=== PATIENT | female | born 1960 | race Caucasian/White ===

== ENCOUNTER → 2016-10-02 | Outpatient (CLI) | payer BC ==
[~2016-10-02] MED LIST: NIAC750T11 PO; VARE1TAB PO
[2016-10-02 08:04] LABS: Basophils # (auto) 0 uL; Basophils % (auto) 0.5 % (0.0-2.0); Eosinophils # (auto) 0.1 uL; Eosinophils % (auto) 0.8 % (0.0-7.0); Hematocrit 52.5 % (36.0-46.0); Hemoglobin 17.5 g/dL (12.2-16.2); Lymphocytes # (auto) 2.9 uL; Lymphocytes % (auto) 31.4 % (10.0-50.0); Mean Corpuscular Hemoglobin 31.5 pg (28.0-32.0); Mean Corpuscular Hgb Conc. 33.2 g/dL (32.0-36.0); Mean Corpuscular Volume 94.8 fL (80.0-100.0); Mean Platelet Volume 9.2 fL (7.4-10.4); Monocytes # (auto) 0.9 uL; Monocytes % (auto) 9.9 % (0.0-12.0); Neutrophils # (auto) 5.2 uL; Neutrophils % (auto) 57.4 % (37.0-80.0); Platelet Count (auto) 296 10^3/uL (140-450); Red Cell Distribution Width 14.3 % (11.6-16.0); White Blood Cell 9.1 10^3/uL (4.4-10.8)
[2016-10-02 08:15] LABS: Urine Bilirubin Negative (Negative); Urine Blood Negative /uL (Negative); Urine Color Yellow (Yellow); Urine Glucose Normal (Normal); Urine Ketone Negative (Negative); Urine Mucus FEW (None Seen); Urine Nitrite Negative (Negative); Urine RBC 2 /hpf (0 - 4); Urine Squamous Epithelial Cell MOD /hpf (<5); Urine Urobilinogen Normal (Negative); Urine pH 5.5 (5.0-8.0)
[2016-10-02 08:31] LABS: Albumin 3.5 g/dL (3.4-5.0); BUN/Creatinine Ratio 22.9; Bilirubin, Total 1.1 mg/dL (0.2-1.0); Calcium 9.5 mg/dL (8.5-10.1); Potassium 4.3 mmol/L (3.5-5.1); Total Protein 6.8 g/dL (6.4-8.2)
== END | disposition home or self-care (01) ==
LOC: LAB 06:33
PROVIDERS: ATTEND Internal Medicine
DX: I10 Essential (primary) hypertension (principal); E78.00 Pure hypercholesterolemia, unspecified; Z00.00 Encounter for general adult medical examination without abnormal findings
CPT/HCPCS: 36415; 80053; 80061; 81001; 84443; 85025

== ENCOUNTER → 2016-10-27 | Outpatient (CLI) | payer BC | LOC: XYW 07:53 | PROVIDERS: ATTEND Internal Medicine | DX: I27.2 Other secondary pulmonary hypertension (principal); I37.1 Nonrheumatic pulmonary valve insufficiency | CPT/HCPCS: 93306 ==

== ENCOUNTER → 2016-11-05 | Outpatient (CLI) | payer BC | END | disposition home or self-care (01) | LOC: RT 08:28 | PROVIDERS: ATTEND Internal Medicine | DX: R06.02 Shortness of breath (principal); F17.200 Nicotine dependence, unspecified, uncomplicated | CPT/HCPCS: 94060; 94640 ==

== ENCOUNTER → 2016-12-17 | Outpatient (CLI) | payer BC ==
[2016-12-17 15:58] LABS: Allen Test Yes; Base Excess -1.7 mmol/L (-2.0-2.0); Blood 02Sat 88.5 % (96-100); Blood COHb 0.4 % (0.5-1.5); Blood MetHb 0.2 % (0.0-1.5); HCO3 19.2 mmol/L (22-26.0); HHb 11.4 % (0.0-5.0); MODE RA; PCO2 24.9 mmHg (35.0-45.0); PCO2(T) 24.9 mmHg (35.0-45.0); PO2 56.7 mmHg (80.0-100.0); PO2(T) 56.7 mmHg (80.0-100.0); Sample Type Arterial; pH 7.505 (7.350-7.450)
== END | disposition home or self-care (01) ==
LOC: RT 15:26
PROVIDERS: ATTEND Internal Medicine Pulmonary Disease
DX: I27.2 Other secondary pulmonary hypertension (principal)
CPT/HCPCS: 36600; 82805

== ENCOUNTER → 2017-01-22 | Outpatient (CLI) | payer BC | END | disposition home or self-care (01) | LOC: XY 08:36 | PROVIDERS: ATTEND Internal Medicine Pulmonary Disease | DX: I27.2 Other secondary pulmonary hypertension (principal); I51.7 Cardiomegaly; R91.8 Other nonspecific abnormal finding of lung field | CPT/HCPCS: 71010; 78582; A9540; A9558 ==

== ENCOUNTER → 2017-01-29 | Outpatient (CLI) | payer BC ==
[2017-01-29 08:36] LABS: Allen Test Yes; Base Excess -2.1 mmol/L (-2.0-2.0); Blood 02Sat 88.4 % (96-100); Blood MetHb 0.4 % (0.0-1.5); HCO3 19.2 mmol/L (22-26.0); HHb 11.4 % (0.0-5.0); MODE ROOM AIR; O2Hb 87.2 % (94.0-97.0); PCO2 26.7 mmHg (35.0-45.0); PCO2(T) 26.7 mmHg (35.0-45.0); PO2 55.6 mmHg (80.0-100.0); PO2(T) 55.6 mmHg (80.0-100.0); Sample Type Arterial; pH 7.474 (7.350-7.450)
== END | disposition home or self-care (01) ==
LOC: RT 08:21
PROVIDERS: ATTEND Internal Medicine Pulmonary Disease
DX: I27.2 Other secondary pulmonary hypertension (principal)
CPT/HCPCS: 36600; 82805

== ENCOUNTER → 2017-02-18 | Day surgery (SDC) | payer BC ==
[~2017-02-18] VITALS: Ht 162.6 cm; Wt 68.6 kg
[~2017-02-18] MED LIST changes: +ALBUAER3 IN; +ANGIOMAX 250 MG VIAL IV ONE; +ASPI81CH43 PO; +ATOR40TA52 PO; +ENA2.5T PO; +FURO20TA PO; +IOHEXOL 350 MG/ML 100ML IJ ONE; +LIDOCAINE 2%HCL (LOCAL ANESTH.) INJ 20ML MDV ONE; +METO25TA5 PO; +MIDAZOLAM HCL 1MG/1ML-2 ML VIAL ONE; +POTA20TA53 PO; +SODIUM CHL 0.9% 50 ML ONE; +UMEC1AER IN; -VARE1TAB PO; +fentaNYL CITRATE 100 MCG/2 ML VL ONE
== END ==
LOC: CATH 10:59
PROVIDERS: ATTEND Internal Medicine Cardiovascular Disease
DX: I27.2 Other secondary pulmonary hypertension (principal); J44.9 Chronic obstructive pulmonary disease, unspecified; F17.210 Nicotine dependence, cigarettes, uncomplicated; Z86.79 Personal history of other diseases of the circulatory system; Z87.891 Personal history of nicotine dependence
CPT/HCPCS: 93460; C1751; C1760; C1769; C1894; J1644; J2250; J3010; J7030; Q9967; 93458

== ENCOUNTER 2017-05-31 08:01 | Inpatient (IN) | payer BC ==
[~2017-05-31] VITALS: Ht 162.6 cm; Wt 71.5 kg
[~2017-05-31 08:01] MED LIST changes: -ANGIOMAX 250 MG VIAL IV ONE; -IOHEXOL 350 MG/ML 100ML IJ ONE; -LIDOCAINE 2%HCL (LOCAL ANESTH.) INJ 20ML MDV ONE; -MIDAZOLAM HCL 1MG/1ML-2 ML VIAL ONE; -NIAC750T11 PO; -SODIUM CHL 0.9% 50 ML ONE; -fentaNYL CITRATE 100 MCG/2 ML VL ONE
[2017-05-31] MEDS ORDERED: KETOROLAC TROMETH 30 MG/ML 1ML VIAL IV ONE (08:30)
[2017-05-31] MEDS ORDERED: SODIUM CHLORIDE 0.9% 1,000 ML IVB ONE (08:30)
[2017-05-31 08:45] LABS: Basophils # (auto) 0.1 uL; Basophils % (auto) 0.8 % (0.0-2.0); Eosinophils # (auto) 0.1 uL; Eosinophils % (auto) 1.2 % (0.0-7.0); Hematocrit 50.5 % (36.0-46.0); Lymphocytes # (auto) 1.5 uL; Lymphocytes % (auto) 14.9 % (10.0-50.0); Mean Corpuscular Hemoglobin 33.2 pg (28.0-32.0); Mean Corpuscular Hgb Conc. 33.6 g/dL (32.0-36.0); Mean Corpuscular Volume 98.8 fL (80.0-100.0); Mean Platelet Volume 8.8 fL (6.9-10.8); Monocytes # (auto) 0.9 uL; Monocytes % (auto) 9.1 % (0.0-12.0); Neutrophils # (auto) 7.5 uL; Nucleated Red Blood Cells % 0.1 %; Platelet Count (auto) 374 10^3/uL (140-450); Red Cell Distribution Width 13.6 % (11.8-14.3); White Blood Cell 10.1 10^3/uL (4.4-10.8)
[2017-05-31 09:02] LABS: Albumin 3.2 g/dL (3.4-5.0); Anion Gap 13 (5-15); Blood Urea Nitrogen 27 mg/dL (7-18); Carbon Dioxide 23 mmol/L (21-32); Chloride 101 mmol/L (98-107); Glucose 116 mg/dL (74-106); Sodium 137 mmol/L (136-145)
[2017-05-31 09:04] LABS: Aspartate Aminotransferase 98 U/L (15-37); BUN/Creatinine Ratio 18.9; GFR African American 48 mL/min; GFR Non-African American 40 mL/min
[2017-05-31 09:12] LABS: Alkaline Phosphatase 245 U/L (45-117); Bilirubin, Total 0.6 mg/dL (0.2-1.0); Total Protein 7.3 g/dL (6.4-8.2)
[2017-05-31] MEDS ORDERED: cefTRIAXone 1GM/50ML D5W 50 ML IV ONE (09:45)
[2017-05-31] MEDS ORDERED: ONDANSETRON HCL 4 MG/2 ML VIAL IV PRN (09:45)
[2017-05-31] MEDS ORDERED: METOPROLOL SUCCINATE XL 50 MG TAB PO ONE (09:45)
[2017-05-31] MEDS ORDERED: MORPHINE SULFATE 10 MG/ML INJ 1ML SDV IV PRN (09:45)
[2017-05-31] MEDS ORDERED: NITROGLYCERIN 0.4 MG SL TAB SL PRN (09:45)
[2017-05-31] MEDS ORDERED: LEVOFLOXACIN 500MG 100 ML IV ONE (09:45)
[2017-05-31] MEDS ORDERED: ASPirin-EC 81 mg tab PO ONE (10:15)
[2017-05-31] MEDS: SODIUM CHLORIDE 0.9% 1,000 ML IV SCH ×2 (10:25→21:44)
[2017-05-31 12:15] LABS: Lactic Acid w/Reflex 2.9 mmol/L (0.4-2.0)
[2017-05-31 12:21] LABS: REFLEX LACTIC ACID YES OR NO YES
[2017-05-31] MEDS ORDERED: AZITHROMYCIN 500MG/ 250ML 250 ML IV ONE (14:45)
[2017-05-31 15:18] VITALS: BP 129/94
[2017-05-31 17:18] VITALS: BP 120/77
[2017-05-31] MEDS: ALBUTEROL SULF 2.5 MG/0.5ML(0.5%) NEB SOLN NEB SCH (19:13)
[2017-05-31] MEDS: IPRATROPIUM BROM 0.5 MG/2.5ML INH SOL NEB SCH (19:13)
[2017-05-31 21:27] VITALS: BP 105/58
[2017-05-31] MEDS: HYDROcodone-ACET 5/325MG TAB PO PRN (21:43)
[2017-05-31] MEDS ORDERED: ATORVASTATIN 20 MG TAB PO SCH (22:00)
[2017-05-31] MEDS ORDERED: ENOXAPARIN SOD 60 MG/0.6 ML SYRINGE SC SCH (22:00)
[2017-06-01] MEDS: IPRATROPIUM BROM 0.5 MG/2.5ML INH SOL NEB SCH ×4 (00:53→19:32)
[2017-06-01] MEDS: ALBUTEROL SULF 2.5 MG/0.5ML(0.5%) NEB SOLN NEB SCH ×4 (00:53→19:32)
[2017-06-01 04:51] VITALS: BP 117/79
[2017-06-01 07:31] LABS: Basophils # (auto) 0.1 uL; Basophils % (auto) 0.8 % (0.0-2.0); Eosinophils # (auto) 0.2 uL; Eosinophils % (auto) 2.9 % (0.0-7.0); Hematocrit 45.1 % (36.0-46.0); Hemoglobin 15.3 g/dL (12.2-16.2); Lymphocytes # (auto) 1.5 uL; Lymphocytes % (auto) 18.7 % (10.0-50.0); Mean Corpuscular Hemoglobin 33.7 pg (28.0-32.0); Mean Corpuscular Volume 99.1 fL (80.0-100.0); Mean Platelet Volume 8.2 fL (6.9-10.8); Monocytes % (auto) 12.2 % (0.0-12.0); Neutrophils # (auto) 5.2 uL; Neutrophils % (auto) 65.4 % (37.0-80.0); Nucleated Red Blood Cells % 0.1 %; Platelet Count (auto) 341 10^3/uL (140-450); Red Cell Distribution Width 13.4 % (11.8-14.3)
[2017-06-01 07:59] LABS: Albumin 2.8 g/dL (3.4-5.0); BUN/Creatinine Ratio 24.2; Bilirubin, Total 0.8 mg/dL (0.2-1.0); Calcium 9.1 mg/dL (8.5-10.1); Potassium 4.3 mmol/L (3.5-5.1); Total Protein 6.4 g/dL (6.4-8.2)
[2017-06-01 08:05] VITALS: BP 113/61
[2017-06-01 08:22] VITALS: BP 113/61
[2017-06-01 09:16] LABS: INR 1.05 (0.9-1.15); Prothrombin Time 11.4 sec (9.37-12.3)
[2017-06-01] MEDS: cefTRIAXone 1GM/50ML D5W 50 ML IV SCH (09:50)
[2017-06-01] MEDS ORDERED: AZITHROMYCIN 500MG/ 250ML 250 ML IV SCH (10:00)
[2017-06-01] MEDS ORDERED: METOPROLOL SUCCINATE XL 50 MG TAB PO SCH (10:00)
[2017-06-01] MEDS: LORazepam 2MG/ML-1ML VIAL IV PRN ×2 (11:33→18:04)
[2017-06-01] MEDS: ASPirin-EC 81 mg tab PO SCH (11:34)
[2017-06-01 12:07] VITALS: BP 115/73
[2017-06-01] MEDS ORDERED: ceFAZolin 1GM/50ML 50 ML IV ONE (12:12)
[2017-06-01] MEDS: MORPHINE SULFATE 10 MG/ML INJ 1ML SDV IV PRN ×2 (13:30→18:05)
[2017-06-01] MEDS ORDERED: LIDOCAINE 2%HCL (LOCAL ANESTH.) INJ 20ML MDV ONE (13:33)
[2017-06-01 16:29] VITALS: BP 100/66
[2017-06-01 22:06] VITALS: BP 97/61
[2017-06-02 05:48] VITALS: BP 103/66
[2017-06-02] MEDS: IPRATROPIUM BROM 0.5 MG/2.5ML INH SOL NEB SCH ×4 (06:00→18:00)
[2017-06-02] MEDS: ALBUTEROL SULF 2.5 MG/0.5ML(0.5%) NEB SOLN NEB SCH ×4 (06:00→18:00)
[2017-06-02] MEDS: LORazepam 2MG/ML-1ML VIAL IV PRN (06:36)
[2017-06-02 09:00] VITALS: BP 107/73
[2017-06-02] MEDS ORDERED: IOHEXOL 300 MG/ML 100ML BOTTLE IJ ONE (09:35)
[2017-06-02] MEDS: ASPirin-EC 81 mg tab PO SCH (09:42)
[2017-06-02] MEDS: cefTRIAXone 1GM/50ML D5W 50 ML IV SCH (09:43)
[2017-06-02] MEDS: APIXABAN 5 MG TAB PO SCH ×2 (09:48→22:32)
[2017-06-02] MEDS: predniSONE 20 MG TAB PO SCH (09:48)
[2017-06-02] MEDS: AZITHROMYCIN 250 MG TAB PO SCH (10:00)
[2017-06-02] MEDS: ALPRAZolam 0.25 MG TAB PO PRN ×2 (11:30→20:23)
[2017-06-02 13:00] VITALS: BP 92/57
[2017-06-02 17:00] VITALS: BP 112/55
[2017-06-02] MEDS: HYDROcodone-ACET 5/325MG TAB PO PRN (22:33)
[2017-06-02 22:54] VITALS: BP 101/62
[2017-06-03 04:42] VITALS: BP 104/54
[2017-06-03] MEDS: ALBUTEROL SULF 2.5 MG/0.5ML(0.5%) NEB SOLN NEB SCH ×2 (06:40)
[2017-06-03] MEDS: IPRATROPIUM BROM 0.5 MG/2.5ML INH SOL NEB SCH ×2 (06:40)
[2017-06-03] MEDS: cefTRIAXone 1GM/50ML D5W 50 ML IV SCH (09:02)
[2017-06-03] MEDS: predniSONE 20 MG TAB PO SCH (09:36)
[2017-06-03] MEDS: ASPirin-EC 81 mg tab PO SCH (09:36)
[2017-06-03] MEDS: APIXABAN 5 MG TAB PO SCH (09:37)
[2017-06-03] MEDS: AZITHROMYCIN 250 MG TAB PO SCH (09:37)
[2017-06-09] MEDS ORDERED: APIXABAN 5 MG TAB PO SCH (10:00)
== END 2017-06-03 10:50 | disposition home or self-care (01) | DRG 597 ==
LOC: ER 08:01 → EDUNIT# 08:02 → TELE 08:02 → TELE-E-ADS 12:54 → TELE-CENTR 14:47
PROVIDERS: ADMIT Internal Medicine; ATTEND Internal Medicine
DX: C50.919 Malignant neoplasm of unspecified site of unspecified female breast (principal); J18.9 Pneumonia, unspecified organism; I26.99 Other pulmonary embolism without acute cor pulmonale; N17.9 Acute kidney failure, unspecified; J96.10 Chronic respiratory failure, unspecified whether with hypoxia or hypercapnia; C78.00 Secondary malignant neoplasm of unspecified lung; C78.7 Secondary malignant neoplasm of liver and intrahepatic bile duct; I50.22 Chronic systolic (congestive) heart failure; J44.0 Chronic obstructive pulmonary disease with (acute) lower respiratory infection; N39.0 Urinary tract infection, site not specified; C79.51 Secondary malignant neoplasm of bone; J44.1 Chronic obstructive pulmonary disease with (acute) exacerbation; I25.10 Atherosclerotic heart disease of native coronary artery without angina pectoris; I11.0 Hypertensive heart disease with heart failure; R79.1 Abnormal coagulation profile; I07.1 Rheumatic tricuspid insufficiency; I27.20 Pulmonary hypertension, unspecified; Z99.81 Dependence on supplemental oxygen; Z90.13 Acquired absence of bilateral breasts and nipples; Z85.3 Personal history of malignant neoplasm of breast; Z79.01 Long term (current) use of anticoagulants; Z87.440 Personal history of urinary (tract) infections; Z95.5 Presence of coronary angioplasty implant and graft; Z79.899 Other long term (current) drug therapy
CPT/HCPCS: 36415; 70470; 71010; 71250; 74177; 76942; 78306; 78582; 80053; 80061; 83036; 83605; 83690; 83735; 84443; 84484; 85025; 85379; 85610; 85730; 87040; 88341; 93005; 93306; 93970; 94640; 94761; 96361; 96374; 96375; J0690; J0696; J1885; J1956

== ENCOUNTER 2017-06-23 20:10 | Inpatient (IN) | payer BC ==
[~2017-06-23] VITALS: Ht 1 cm; Wt 60.8 kg
[2017-06-23 20:30] VITALS: BP 139/96
[2017-06-23] MEDS ORDERED: IPRATROPIUM BROM 0.5 MG/2.5ML INH SOL NEB PRN (21:15)
[2017-06-23] MEDS ORDERED: ALBUTEROL SULF 2.5 MG/0.5ML(0.5%) NEB SOLN NEB PRN (21:15)
[2017-06-23] MEDS ORDERED: LORazepam 2MG/ML-1ML VIAL IV PRN (21:45)
[2017-06-23] MEDS ORDERED: LORazepam 0.5 MG TAB PO PRN (21:45)
[2017-06-23] MEDS ORDERED: VANCOMYCIN 1GM/250ML 250 ML IV SCH ×2 (22:00→23:00)
[2017-06-23] MEDS: methylPREDNISolone SOD SUCC 125 MG/2 ML VL IV SCH (22:25)
[2017-06-23] MEDS ORDERED: NITROGLYCERIN 0.4 MG SL TAB SL PRN (22:45)
[2017-06-23] MEDS ORDERED: MORPHINE SULF INJ 2 MG/ML SYRINGE 1ML IV PRN (22:45)
[2017-06-23] MEDS: IPRATROPIUM BROM 0.5 MG/2.5ML INH SOL NEB SCH (22:53)
[2017-06-23] MEDS: ALBUTEROL SULF 2.5 MG/0.5ML(0.5%) NEB SOLN NEB SCH (22:53)
[2017-06-23 23:03] VITALS: BP 139/96
[2017-06-24] MEDS: PIPERACILLIN-TAZOB 3.375GM 50 ML IV SCH ×4 (00:31→17:53)
[2017-06-24 04:07] VITALS: BP 139/96
[2017-06-24 06:24] VITALS: BP 127/78
[2017-06-24] MEDS: IPRATROPIUM BROM 0.5 MG/2.5ML INH SOL NEB SCH ×4 (06:40→18:56)
[2017-06-24] MEDS: ALBUTEROL SULF 2.5 MG/0.5ML(0.5%) NEB SOLN NEB SCH ×4 (06:40→18:56)
[2017-06-24 08:30] VITALS: BP 116/72
[2017-06-24] MEDS: HYDROcodone-ACET 7.5/325MG TAB PO PRN ×3 (08:54→17:53)
[2017-06-24 08:55] LABS: Eosinophils # (auto) 0 uL; Lymphocytes # (auto) 0.7 uL; Mean Platelet Volume 9.6 fL (6.9-10.8)
[2017-06-24 08:56] LABS: Basophils # (auto) 0 uL; Basophils % (auto) 0.1 % (0.0-2.0); Hematocrit 42.5 % (36.0-46.0); Hemoglobin 14.4 g/dL (12.2-16.2); Lymphocytes % (auto) 2.8 % (10.0-50.0); Mean Corpuscular Hemoglobin 33.8 pg (28.0-32.0); Mean Corpuscular Hgb Conc. 33.8 g/dL (32.0-36.0); Mean Corpuscular Volume 100.1 fL (80.0-100.0); Monocytes # (auto) 1.4 uL; Monocytes % (auto) 5.7 % (0.0-12.0); Neutrophils # (auto) 22.4 uL; Neutrophils % (auto) 91.4 % (37.0-80.0); Platelet Count (auto) 258 10^3/uL (140-450); Red Cell Distribution Width 14.2 % (11.8-14.3); White Blood Cell 24.5 10^3/uL (4.4-10.8)
[2017-06-24 09:32] LABS: Albumin 2.9 g/dL (3.4-5.0); BUN/Creatinine Ratio 43.6; Bilirubin, Total 1.2 mg/dL (0.2-1.0); Calcium 9.5 mg/dL (8.5-10.1); Potassium 3.5 mmol/L (3.5-5.1); Total Protein 6.8 g/dL (6.4-8.2)
[2017-06-24] MEDS: methylPREDNISolone SOD SUCC 125 MG/2 ML VL IV SCH (10:17)
[2017-06-24] MEDS: ASPirin 81 mg TAB PO SCH (10:18)
[2017-06-24] MEDS: PANTOPRAZOLE 40 MG/10 ML VIAL IV SCH (10:18)
[2017-06-24] MEDS: ENOXAPARIN SOD 80 MG/0.8ML SYRINGE SC SCH (10:18)
[2017-06-24] MEDS ORDERED: VANCOMYCIN PER PHARMACY 0 MG IV SCH (11:00)
[2017-06-24 12:30] VITALS: BP 105/64
[2017-06-24 20:00] VITALS: BP 135/84
[2017-06-24 22:00] VITALS: BP 135/84
[2017-06-24] MEDS ORDERED: VANCOMYCIN 1GM/250ML 250 ML IV SCH (22:00)
[2017-06-25] MEDS: PIPERACILLIN-TAZOB 3.375GM 50 ML IV SCH ×3 (00:01→12:10)
[2017-06-25 05:00] VITALS: BP 123/55
[2017-06-25 06:53] LABS: Eosinophils # (auto) 0 uL; Mean Platelet Volume 10.3 fL (6.9-10.8); Neutrophils # (auto) 20.9 uL; Nucleated Red Blood Cells % 0.1 %; Platelet Count (auto) 199 10^3/uL (140-450)
[2017-06-25 06:56] LABS: Basophils # (auto) 0.1 uL; Basophils % (auto) 0.3 % (0.0-2.0); Eosinophils % (auto) 0.2 % (0.0-7.0); Hematocrit 38.3 % (36.0-46.0); Hemoglobin 12.9 g/dL (12.2-16.2); Lymphocytes # (auto) 1.3 uL; Lymphocytes % (auto) 5.5 % (10.0-50.0); Mean Corpuscular Hemoglobin 34.3 pg (28.0-32.0); Mean Corpuscular Hgb Conc. 33.8 g/dL (32.0-36.0); Mean Corpuscular Volume 101.4 fL (80.0-100.0); Monocytes # (auto) 1.3 uL; Monocytes % (auto) 5.5 % (0.0-12.0); Neutrophils % (auto) 88.5 % (37.0-80.0); Red Cell Distribution Width 13.9 % (11.8-14.3); White Blood Cell 23.6 10^3/uL (4.4-10.8)
[2017-06-25 07:32] LABS: BUN/Creatinine Ratio 38.3; Calcium 9.1 mg/dL (8.5-10.1); Potassium 3.1 mmol/L (3.5-5.1)
[2017-06-25] MEDS: ALBUTEROL SULF 2.5 MG/0.5ML(0.5%) NEB SOLN NEB SCH ×2 (08:13→10:57)
[2017-06-25] MEDS: IPRATROPIUM BROM 0.5 MG/2.5ML INH SOL NEB SCH ×2 (08:13→10:55)
[2017-06-25] MEDS ORDERED: predniSONE 5 MG TAB PO SCH (10:00)
[2017-06-25] MEDS: ASPirin 81 mg TAB PO SCH (10:28)
[2017-06-25] MEDS: ENOXAPARIN SOD 80 MG/0.8ML SYRINGE SC SCH (10:28)
[2017-06-25] MEDS: PANTOPRAZOLE 40 MG/10 ML VIAL IV SCH (10:29)
[2017-06-25 12:40] VITALS: BP 136/96
== END 2017-06-25 14:59 | disposition left against medical advice (07) | DRG 189 ==
LOC: TELE-WESTW 20:10 → EDUNIT# 20:10
PROVIDERS: ADMIT Family Medicine; ATTEND Internal Medicine
DX: J96.20 Acute and chronic respiratory failure, unspecified whether with hypoxia or hypercapnia (principal); J18.9 Pneumonia, unspecified organism; N17.9 Acute kidney failure, unspecified; C78.00 Secondary malignant neoplasm of unspecified lung; C78.7 Secondary malignant neoplasm of liver and intrahepatic bile duct; C79.51 Secondary malignant neoplasm of bone; J44.0 Chronic obstructive pulmonary disease with (acute) lower respiratory infection; J98.11 Atelectasis; I11.0 Hypertensive heart disease with heart failure; I50.9 Heart failure, unspecified; Z53.21 Procedure and treatment not carried out due to patient leaving prior to being seen by health care provider; I25.10 Atherosclerotic heart disease of native coronary artery without angina pectoris; I27.20 Pulmonary hypertension, unspecified; Z79.899 Other long term (current) drug therapy; Z80.8 Family history of malignant neoplasm of other organs or systems; Z87.891 Personal history of nicotine dependence; Z90.13 Acquired absence of bilateral breasts and nipples; Z85.3 Personal history of malignant neoplasm of breast; Z99.81 Dependence on supplemental oxygen; Z92.21 Personal history of antineoplastic chemotherapy; Z87.440 Personal history of urinary (tract) infections
CPT/HCPCS: 36415; 71010; 80048; 80053; 80202; 83615; 85025; 86300; 87040; 87081; 94640; 97163; C9113; J2543

== ENCOUNTER 2017-06-29 02:40 | Inpatient (IN) | payer BC ==
[~2017-06-29] VITALS: Ht 165.1 cm; Wt 63.8 kg
[2017-06-29 03:58] LABS: Basophils # (auto) 0 uL; Hemoglobin 11.6 g/dL (12.2-16.2); Monocytes # (auto) 1.1 uL; Platelet Count (auto) 222 10^3/uL (140-450)
[2017-06-29 03:59] LABS: Basophils % (auto) 0.3 % (0.0-2.0); Eosinophils # (auto) 0.1 uL; Eosinophils % (auto) 0.7 % (0.0-7.0); Hematocrit 33.8 % (36.0-46.0); Lymphocytes # (auto) 0.9 uL; Mean Corpuscular Hemoglobin 34.9 pg (28.0-32.0); Mean Corpuscular Hgb Conc. 34.3 g/dL (32.0-36.0); Mean Platelet Volume 10.1 fL (6.9-10.8); Monocytes % (auto) 6.8 % (0.0-12.0); Neutrophils # (auto) 13.4 uL; Neutrophils % (auto) 86.2 % (37.0-80.0); Nucleated Red Blood Cells % 0.4 %; Red Cell Distribution Width 14.3 % (11.8-14.3); White Blood Cell 15.5 10^3/uL (4.4-10.8)
[2017-06-29 04:20] LABS: INR 1.05 (0.9-1.15); Partial Thromboplastin Time 23.3 sec (22.64-33.71); Prothrombin Time 11.4 sec (9.37-12.3)
[2017-06-29 04:25] LABS: Albumin 2.4 g/dL (3.4-5.0); BUN/Creatinine Ratio 29.9; Bilirubin, Total 1.1 mg/dL (0.2-1.0); Calcium 8.7 mg/dL (8.5-10.1); Total Protein 6.1 g/dL (6.4-8.2)
[2017-06-29 04:27] LABS: Temperature: 21.1 C (20.0-25.0)
[2017-06-29 04:34] LABS: Potassium 2.9 mmol/L (3.5-5.1)
[2017-06-29] MEDS ORDERED: VANCOMYCIN 1GM/250ML 250 ML IV ONE (05:00)
[2017-06-29] MEDS ORDERED: POTASSIUM CHL 20 Meq TABLET PO ONE (05:00)
[2017-06-29] MEDS ORDERED: CEFTRIAXONE SODIUM 1 GM in D5W 5% 50 ML IV ONE (05:00)
[2017-06-29] MEDS ORDERED: cefTRIAXone 1GM/10ml IVPUSH 10 ML IV ONE ×2 (06:45→11:00)
[2017-06-29] MEDS ORDERED: LORazepam 2MG/ML-1ML VIAL IV ONE (07:15)
[2017-06-29] MEDS ORDERED: ENOXAPARIN SOD 60 MG/0.6 ML SYRINGE SC ONE (07:15)
[2017-06-29] MEDS ORDERED: FUROSEMIDE 40 MG/4 ML VIAL IV ONE (07:15)
[2017-06-29] MEDS ORDERED: SODIUM CHLORIDE 0.9% 1,000 ML IV ONE (09:15)
[2017-06-29] MEDS ORDERED: ENOXAPARIN SOD 40 MG/0.4 ML SYRINGE SC ONE (10:45)
[2017-06-29] MEDS ORDERED: HYDROcodone-ACET 5/325MG TAB PO PRN (10:45)
[2017-06-29] MEDS ORDERED: NITROGLYCERIN 0.4 MG SL TAB SL PRN (10:45)
[2017-06-29] MEDS ORDERED: ONDANSETRON HCL 4 MG/2 ML VIAL IV PRN (10:45)
[2017-06-29] MEDS ORDERED: ALPRAZolam 0.25 MG TAB PO PRN (10:45)
[2017-06-29] MEDS ORDERED: MORPHINE SULF INJ 2 MG/ML SYRINGE 1ML IV PRN ×2 (10:45)
[2017-06-29] MEDS ORDERED: ETOMIDATE (2MG/ML) 20ML VIAL IV ONE ×2 (10:56)
[2017-06-29] MEDS ORDERED: SUCCINYLCHOLINE CHLORIDE 20 MG/ML 10ML VIAL IV ONE ×2 (10:57)
[2017-06-29] MEDS ORDERED: MIDAZOLAM DRIP 100 mg/100mL NS 100 ML IV ONE (10:57)
[2017-06-29] MEDS ORDERED: PROPOFOL 100 ML IV ONE (10:57)
[2017-06-29] MEDS ORDERED: AZITHROMYCIN 500MG/ 250ML 250 ML IV ONE (11:00)
[2017-06-29] MEDS ORDERED: ENALAPRIL MALEATE 2.5 MG TAB PO SCH (11:05)
[2017-06-29] MEDS: MIDAZOLAM DRIP 100 mg/100mL NS 100 ML IV SCH (11:15)
[2017-06-29] MEDS ORDERED: ASPirin 81 mg TAB PO ONE (11:15)
[2017-06-29] MEDS ORDERED: VANCOMYCIN PER PHARMACY 0 MG IV SCH (11:15)
[2017-06-29] MEDS ORDERED: methylPREDNISolone SOD SUCC 125 MG/2 ML VL IV ONE (11:15)
[2017-06-29] MEDS ORDERED: METOPROLOL TARTRATE 25 MG TAB PO ONE (11:15)
[2017-06-29] MEDS ORDERED: NOREPINEPHRINE 8 MG/250ML KIT 250 ML IV ONE (11:51)
[2017-06-29] MEDS: NOREPINEPHRINE 8 MG/250ML KIT 250 ML IV SCH (12:00)
[2017-06-29] MEDS ORDERED: IPRATROPIUM BROM 0.5 MG/2.5ML INH SOL NEB SCH (12:00)
[2017-06-29] MEDS ORDERED: ALBUTEROL SULF 2.5 MG/0.5ML(0.5%) NEB SOLN NEB SCH (12:00)
[2017-06-29] MEDS: POTASSIUM CHL 20MEQ/50ML 50 ML IV SCH ×2 (12:07→13:11)
[2017-06-29 12:34] LABS: Base Excess -4.2 mmol/L (-2.0-2.0); Blood 02Sat 97.6 % (96-100); Blood COHb 0.3 % (0.5-1.5); Blood MetHb 0.2 % (0.0-1.5); HCO3 21.3 mmol/L (22-26.0); HHb 2.4 % (0.0-5.0); MODE VENT - A/C; O2Hb 97.1 % (94.0-97.0); PCO2 40.3 mmHg (35.0-45.0); PCO2(T) 40.3 mmHg (35.0-45.0); PIP 27; PO2 139.8 mmHg (80.0-100.0); PO2(T) 139.8 mmHg (80.0-100.0); Room 1030-ERT; Sample Type Arterial; Spont Vt 488
[2017-06-29] MEDS: VANCOMYCIN 1GM/250ML 250 ML IV SCH (13:00)
[2017-06-29] MEDS: fentaNYL Drip 2500mCg/250mlNS 250 ML IV SCH (13:00)
[2017-06-29] MEDS ORDERED: LIDOCAINE 1% HCL (LOCAL ANESTH.) INJ 20ML MDV ID ONE (15:00)
[2017-06-29] MEDS: PANTOPRAZOLE 40 MG/10 ML VIAL IV SCH (16:15)
[2017-06-29 18:58] VITALS: BP 111/68
[2017-06-29] MEDS: ALBUTEROL SULF 2.5 MG/0.5ML(0.5%) NEB SOLN NEB SCH (19:14)
[2017-06-29] MEDS: IPRATROPIUM BROM 0.5 MG/2.5ML INH SOL NEB SCH (19:14)
[2017-06-29 20:10] VITALS: BP 113/68
[2017-06-29 22:38] VITALS: BP 100/70
[2017-06-29] MEDS: SODIUM CHLOR 0.9% PF (SALINE LOCK) 10ML VIAL IV SCH (22:40)
[2017-06-29] MEDS: methylPREDNISolone SOD SUCC 125 MG/2 ML VL IV SCH (22:49)
[2017-06-29 23:00] VITALS: BP 100/70
[2017-06-29] MEDS: APIXABAN 5 MG TAB PO SCH (23:15)
[2017-06-30] VITALS (69 sets, daily range): BP systolic 86–116; BP diastolic 43–79
[2017-06-30 00:12] LABS: Allen Test Modified; Base Excess -8.3 mmol/L (-2.0-2.0); Blood 02Sat 89.4 % (96-100); Blood COHb 0.3 % (0.5-1.5); Blood MetHb 0.3 % (0.0-1.5); HCO3 19.6 mmol/L (22-26.0); HHb 10.5 % (0.0-5.0); MODE VENT - A/C; O2Hb 88.9 % (94.0-97.0); PO2 69.1 mmHg (80.0-100.0); PO2(T) 69.1 mmHg (80.0-100.0); Sample Type Arterial; pH 7.211 (7.350-7.450)
[2017-06-30] MEDS: VANCOMYCIN 1GM/250ML 250 ML IV SCH ×2 (01:00→13:15)
[2017-06-30] MEDS: ALBUTEROL SULF 2.5 MG/0.5ML(0.5%) NEB SOLN NEB SCH ×4 (01:02→18:56)
[2017-06-30] MEDS: IPRATROPIUM BROM 0.5 MG/2.5ML INH SOL NEB SCH ×4 (01:03→18:56)
[2017-06-30 03:13] LABS: Allen Test Modified; Base Excess -8.6 mmol/L (-2.0-2.0); Blood 02Sat 93.9 % (96-100); Blood COHb 0.3 % (0.5-1.5); Blood MetHb 0.3 % (0.0-1.5); HCO3 18.6 mmol/L (22-26.0); HHb 6.1 % (0.0-5.0); MODE VENT - A/C; O2Hb 93.3 % (94.0-97.0); PCO2 44.8 mmHg (35.0-45.0); PCO2(T) 44.8 mmHg (35.0-45.0); PO2 84.2 mmHg (80.0-100.0); PO2(T) 84.2 mmHg (80.0-100.0); Sample Type Arterial; pH 7.236 (7.350-7.450)
[2017-06-30 04:55] LABS: Basophils # (auto) 0 uL; Eosinophils # (auto) 0 uL; Hemoglobin 11.3 g/dL (12.2-16.2); Lymphocytes # (auto) 0.4 uL; Lymphocytes % (auto) 2.5 % (10.0-50.0); Mean Corpuscular Hemoglobin 34.3 pg (28.0-32.0); Mean Platelet Volume 9.8 fL (6.9-10.8); Monocytes # (auto) 0.4 uL; Nucleated Red Blood Cells % 0.3 %; Red Cell Distribution Width 15.6 % (11.8-14.3)
[2017-06-30 04:56] LABS: Hematocrit 34.9 % (36.0-46.0); Mean Corpuscular Hgb Conc. 32.4 g/dL (32.0-36.0); Mean Corpuscular Volume 105.9 fL (80.0-100.0); Monocytes % (auto) 2.6 % (0.0-12.0); Neutrophils % (auto) 94.9 % (37.0-80.0); Platelet Count (auto) 251 10^3/uL (140-450); White Blood Cell 15.9 10^3/uL (4.4-10.8)
[2017-06-30 05:11] LABS: Albumin 2.5 g/dL (3.4-5.0); BUN/Creatinine Ratio 18.7; Bilirubin, Total 0.5 mg/dL (0.2-1.0); Calcium 7.9 mg/dL (8.5-10.1); Potassium 5.3 mmol/L (3.5-5.1); Total Protein 6.5 g/dL (6.4-8.2)
[2017-06-30 07:33] LABS: Allen Test Yes; Base Excess -5.8 mmol/L (-2.0-2.0); Blood 02Sat 97.3 % (96-100); Blood COHb 0.3 % (0.5-1.5); Blood MetHb 0.5 % (0.0-1.5); HCO3 19.5 mmol/L (22-26.0); HHb 2.7 % (0.0-5.0); MODE VENT - A/C; O2Hb 96.5 % (94.0-97.0); PCO2 37.5 mmHg (35.0-45.0); PCO2(T) 37.5 mmHg (35.0-45.0); PO2 103.3 mmHg (80.0-100.0); PO2(T) 103.3 mmHg (80.0-100.0); Sample Type Arterial; pH 7.334 (7.350-7.450)
[2017-06-30] MEDS ORDERED: cefTRIAXone 1GM/10ml IVPUSH 10 ML IV SCH (09:00)
[2017-06-30] MEDS ORDERED: ASPirin 81 mg TAB PO SCH (10:00)
[2017-06-30] MEDS ORDERED: METOPROLOL TARTRATE 25 MG TAB PO SCH (10:00)
[2017-06-30] MEDS ORDERED: ENOXAPARIN SOD 40 MG/0.4 ML SYRINGE SC SCH (10:00)
[2017-06-30] MEDS ORDERED: AZITHROMYCIN 500MG/ 250ML 250 ML IV SCH (10:00)
[2017-06-30] MEDS: methylPREDNISolone SOD SUCC 125 MG/2 ML VL IV SCH (11:02)
[2017-06-30] MEDS: PANTOPRAZOLE 40 MG/10 ML VIAL IV SCH (11:02)
[2017-06-30] MEDS: SODIUM CHLOR 0.9% PF (SALINE LOCK) 10ML VIAL IV SCH ×2 (11:02→22:04)
[2017-06-30] MEDS: APIXABAN 5 MG TAB PO SCH ×2 (11:03→22:05)
[2017-06-30] MEDS: fentaNYL Drip 2500mCg/250mlNS 250 ML IV SCH (11:27)
[2017-06-30] MEDS: MIDAZOLAM DRIP 100 mg/100mL NS 100 ML IV SCH ×2 (11:27→20:28)
[2017-06-30] MEDS: NOREPINEPHRINE 8 MG/250ML KIT 250 ML IV SCH (15:00)
[2017-06-30] MEDS: SODIUM CHLORIDE 0.9% 1,000 ML IV SCH (15:56)
[2017-06-30] MEDS ORDERED: PIPERACILLIN-TAZOB 2.25GM 50 ML IV SCH (18:00)
[2017-06-30] MEDS: PIPERACILLIN-TAZOB 2.25GM 100 ML IV SCH (18:43)
[2017-06-30] MEDS: methylPREDNISolone SOD SUCC 40 MG/ML VL IV SCH (22:04)
[2017-07-01] VITALS (85 sets, daily range): BP systolic 93–128; BP diastolic 50–73
[2017-07-01] MEDS: IPRATROPIUM BROM 0.5 MG/2.5ML INH SOL NEB SCH ×5 (00:21→23:53)
[2017-07-01] MEDS: ALBUTEROL SULF 2.5 MG/0.5ML(0.5%) NEB SOLN NEB SCH ×5 (00:21→23:54)
[2017-07-01 00:22] LABS: Urine Bilirubin Negative (Negative); Urine Blood 2+ /uL (Negative); Urine Color Yellow (Yellow); Urine Glucose Normal (Normal); Urine Ketone Negative (Negative); Urine Nitrite Negative (Negative); Urine RBC 150 /hpf (0 - 4); Urine Squamous Epithelial Cell FEW /hpf (<5); Urine Urobilinogen Normal (Negative); Urine pH 5.5 (5.0-8.0)
[2017-07-01] MEDS: VANCOMYCIN 1GM/250ML 250 ML IV SCH (01:00)
[2017-07-01] MEDS: SODIUM CHLORIDE 0.9% 1,000 ML IV SCH (03:35)
[2017-07-01 04:02] LABS: Basophils # (auto) 0 uL; Eosinophils # (auto) 0 uL; Mean Platelet Volume 9.3 fL (6.9-10.8); Monocytes # (auto) 0.6 uL
[2017-07-01 04:05] LABS: Basophils % (auto) 0.1 % (0.0-2.0); Hemoglobin 10.9 g/dL (12.2-16.2); Lymphocytes # (auto) 0.3 uL; Lymphocytes % (auto) 1.4 % (10.0-50.0); Mean Corpuscular Hemoglobin 35.3 pg (28.0-32.0); Mean Corpuscular Volume 107.1 fL (80.0-100.0); Monocytes % (auto) 3.3 % (0.0-12.0); Neutrophils # (auto) 17.4 uL; Neutrophils % (auto) 95.2 % (37.0-80.0); Nucleated Red Blood Cells % 0.5 %; Platelet Count (auto) 228 10^3/uL (140-450); Red Cell Distribution Width 15.8 % (11.8-14.3); White Blood Cell 18.3 10^3/uL (4.4-10.8)
[2017-07-01 04:34] LABS: Albumin 2.4 g/dL (3.4-5.0); BUN/Creatinine Ratio 14.9; Bilirubin, Total 0.6 mg/dL (0.2-1.0); Calcium 7.4 mg/dL (8.5-10.1); Total Protein 6.2 g/dL (6.4-8.2)
[2017-07-01 04:41] LABS: Potassium 5.8 mmol/L (3.5-5.1)
[2017-07-01] MEDS: PIPERACILLIN-TAZOB 2.25GM 100 ML IV SCH ×3 (06:00→11:59)
[2017-07-01 07:40] LABS: Allen Test Modified; Base Excess -8.9 mmol/L (-2.0-2.0); Blood 02Sat 94.2 % (96-100); Blood COHb 0.1 % (0.5-1.5); Blood MetHb 0.4 % (0.0-1.5); HHb 5.8 % (0.0-5.0); MODE VENT - A/C; O2Hb 93.7 % (94.0-97.0); PCO2 36.7 mmHg (35.0-45.0); PCO2(T) 36.7 mmHg (35.0-45.0); PIP 20; PO2 78.7 mmHg (80.0-100.0); PO2(T) 78.7 mmHg (80.0-100.0); Sample Type Arterial; pH 7.283 (7.350-7.450)
[2017-07-01] MEDS: SODIUM CHLOR 0.9% PF (SALINE LOCK) 10ML VIAL IV SCH ×2 (10:00→22:05)
[2017-07-01] MEDS: APIXABAN 5 MG TAB PO SCH ×2 (10:00→22:05)
[2017-07-01] MEDS: LINEZOLID 600MG/300ML 300 ML IV SCH ×2 (10:00→22:05)
[2017-07-01] MEDS: PANTOPRAZOLE 40 MG/10 ML VIAL IV SCH (10:00)
[2017-07-01] MEDS: methylPREDNISolone SOD SUCC 40 MG/ML VL IV SCH (10:55)
[2017-07-01] MEDS: fentaNYL Drip 2500mCg/250mlNS 250 ML IV SCH (11:27)
[2017-07-01] MEDS: NOREPINEPHRINE 8 MG/250ML KIT 250 ML IV SCH ×2 (12:00→16:36)
[2017-07-01] MEDS ORDERED: SODIUM POLYSTYRENE SULF 15GM/60ML SUSP PO ONE (13:30)
[2017-07-01] MEDS: MIDAZOLAM DRIP 50 mg/50mL 50 ML IV SCH ×2 (13:53→16:36)
[2017-07-01] MEDS: SODIUM BICARBONATE 50ML VIAL 50 ML in SOD CHL 0.45% 1,000 ML IV SCH (13:55)
[2017-07-01] MEDS ORDERED: SODIUM BICARBONATE 8.4% INJ 50ML SYRINGE ONE ×2 (13:57→14:00)
[2017-07-01] MEDS ORDERED: BUMETANIDE (0.25MG/ML) 4 ML VIAL IV ONE (14:00)
[2017-07-01] MEDS: ALBUMIN 25% 100 ML IV SCH ×2 (14:00→22:04)
[2017-07-01] MEDS ORDERED: FUROSEMIDE 40 MG/4 ML VIAL IV ONE (16:45)
[2017-07-01] MEDS: PIPERACILLIN-TAZOB 2.25GM 50 ML IV SCH (18:16)
[2017-07-01] MEDS ORDERED: ALBUMIN 5% 250 ML IV ONE ×2 (22:45→22:47)
[2017-07-02] VITALS (106 sets, daily range): BP systolic 55–121; BP diastolic 20–74
[2017-07-02] MEDS: PIPERACILLIN-TAZOB 2.25GM 50 ML IV SCH ×5 (00:06→23:27)
[2017-07-02] MEDS ORDERED: SODIUM POLYSTYRENE SULF 15GM/60ML SUSP ONE (00:28)
[2017-07-02] MEDS ORDERED: SODIUM BICARBONATE 8.4% INJ 50ML SYRINGE ONE (00:29)
[2017-07-02] MEDS ORDERED: DEXTROSE 50% SYRINGE 50 ML IV ONE (00:29)
[2017-07-02] MEDS ORDERED: CALCIUM GLUC 4.65meq/50ml D5AE 50 ML IV ONE ×3 (00:29→00:31)
[2017-07-02] MEDS ORDERED: SODIUM POLYSTYRENE SULF 15GM/60ML SUSP PO ONE (00:30)
[2017-07-02] MEDS ORDERED: SODIUM BICARBONATE 8.4 % INJ 50ML VIAL IV ONE (00:30)
[2017-07-02] MEDS ORDERED: InsuLIN REG 1unit/0.01ml Soln (100units/ml) IV ONE (00:30)
[2017-07-02] MEDS ORDERED: DEXTROSE (50%) 50ML SYRG IV ONE (00:30)
[2017-07-02] MEDS ORDERED: DILTIAZEM HCL 25 MG/5 ML VIAL IV ONE ×2 (00:30)
[2017-07-02] MEDS ORDERED: InsuLIN REG 1unit/0.01ml Soln (100units/ml) ONE (00:30)
[2017-07-02 01:18] LABS: Lactic Acid w/Reflex 6.5 mmol/L (0.4-2.0)
[2017-07-02 01:19] LABS: REFLEX LACTIC ACID YES OR NO YES
[2017-07-02] MEDS ORDERED: SODIUM CHLORIDE 0.9% 500 ML IV ONE (03:00)
[2017-07-02] MEDS: SODIUM BICARBONATE 50ML VIAL 50 ML in SOD CHL 0.45% 1,000 ML IV SCH ×3 (03:30→23:27)
[2017-07-02 03:56] LABS: Basophils # (auto) 0 uL; Basophils % (auto) 0.2 % (0.0-2.0); Eosinophils # (auto) 0 uL; Lymphocytes # (auto) 0.3 uL; Monocytes # (auto) 1.2 uL
[2017-07-02 03:58] LABS: Hematocrit 30.9 % (36.0-46.0); Hemoglobin 9.9 g/dL (12.2-16.2); Lymphocytes % (auto) 2.1 % (10.0-50.0); Mean Corpuscular Hemoglobin 35.3 pg (28.0-32.0); Mean Corpuscular Hgb Conc. 32.1 g/dL (32.0-36.0); Mean Corpuscular Volume 109.8 fL (80.0-100.0); Monocytes % (auto) 7.6 % (0.0-12.0); Neutrophils # (auto) 14.3 uL; Neutrophils % (auto) 90.1 % (37.0-80.0); Nucleated Red Blood Cells % 2.1 %; Platelet Count (auto) 175 10^3/uL (140-450); Red Cell Distribution Width 17.5 % (11.8-14.3); White Blood Cell 15.9 10^3/uL (4.4-10.8)
[2017-07-02] MEDS: fentaNYL Drip 2500mCg/250mlNS 250 ML IV SCH ×2 (04:00→14:35)
[2017-07-02] MEDS: MIDAZOLAM DRIP 50 mg/50mL 50 ML IV SCH ×2 (04:00→08:57)
[2017-07-02 04:16] LABS: Albumin 3.3 g/dL (3.4-5.0); BUN/Creatinine Ratio 16.1; Bilirubin, Total 0.7 mg/dL (0.2-1.0); Calcium 6.9 mg/dL (8.5-10.1); Potassium 5.2 mmol/L (3.5-5.1); Total Protein 6.1 g/dL (6.4-8.2)
[2017-07-02 04:57] LABS: Phosphorus 9.8 mg/dL (2.5-4.90)
[2017-07-02] MEDS: ALBUMIN 25% 100 ML IV SCH ×3 (05:31→22:02)
[2017-07-02] MEDS: ALBUTEROL SULF 2.5 MG/0.5ML(0.5%) NEB SOLN NEB SCH ×3 (06:31→18:33)
[2017-07-02] MEDS: IPRATROPIUM BROM 0.5 MG/2.5ML INH SOL NEB SCH ×3 (06:32→18:33)
[2017-07-02 07:54] LABS: Allen Test Modified; Base Excess -12.2 mmol/L (-2.0-2.0); Blood 02Sat 93.5 % (96-100); Blood MetHb 0.4 % (0.0-1.5); HCO3 15.6 mmol/L (22-26.0); HHb 6.5 % (0.0-5.0); MODE VENT - A/C; O2Hb 93.1 % (94.0-97.0); PCO2 43.3 mmHg (35.0-45.0); PCO2(T) 43.3 mmHg (35.0-45.0); PO2 80.3 mmHg (80.0-100.0); PO2(T) 80.3 mmHg (80.0-100.0); Sample Type Arterial; pH 7.174 (7.350-7.450)
[2017-07-02] MEDS: NOREPINEPHRINE 8 MG/250ML KIT 250 ML IV SCH (08:58)
[2017-07-02] MEDS: SODIUM CHLOR 0.9% PF (SALINE LOCK) 10ML VIAL IV SCH ×2 (10:36→22:02)
[2017-07-02] MEDS: PANTOPRAZOLE 40 MG/10 ML VIAL IV SCH (10:36)
[2017-07-02] MEDS: LINEZOLID 600MG/300ML 300 ML IV SCH ×2 (10:36→22:02)
[2017-07-02] MEDS: APIXABAN 5 MG TAB PO SCH ×2 (10:36→22:02)
[2017-07-02] MEDS ORDERED: FUROSEMIDE 100 MG/10ML VIAL IV ONE (11:00)
[2017-07-02] MEDS: CALCIUM ACETATE 667 MG CAP NG SCH ×3 (12:17→22:02)
[2017-07-02] MEDS ORDERED: VASOPRESSIN 20 UNIT/ML ONE (20:44)
[2017-07-02] MEDS ORDERED: VASOPRESSIN 50 UNITS in D5W 5% 247.5 ML IV SCH (20:45)
[2017-07-02] MEDS ORDERED: PHENYLEPHRINE IV 250 ML IV ONE (22:41)
[2017-07-02] MEDS ORDERED: PHENYLEPHRINE INJ 20 MG in SODIUM CHL 0.9% 250 ML IV SCH (22:45)
[2017-07-03] VITALS: BP 110/83
[2017-07-03 00:15] VITALS: BP 124/60
[2017-07-03 00:26] VITALS: BP 110/66
[2017-07-03] MEDS: IPRATROPIUM BROM 0.5 MG/2.5ML INH SOL NEB SCH (00:26)
[2017-07-03] MEDS: ALBUTEROL SULF 2.5 MG/0.5ML(0.5%) NEB SOLN NEB SCH (00:26)
[2017-07-03 00:30] VITALS: BP 110/66
[2017-07-03 00:45] VITALS: BP 101/41
[2017-07-03] MEDS: NOREPINEPHRINE 8 MG/250ML KIT 250 ML IV SCH (00:53)
[2017-07-03 01:15] VITALS: BP 99/56
[2017-07-03] MEDS ORDERED: PHENYLEPHRINE IV 250 ML IV ONE (02:07)
[2017-07-06] MEDS ORDERED: APIXABAN 5 MG TAB PO SCH (22:00)
== END 2017-07-03 02:14 | disposition expired | DRG 871 ==
LOC: EDBD 02:40 → ER 02:48 → TELE 02:49 → ICU WEST 23:28
PROVIDERS: ADMIT Internal Medicine; ATTEND Internal Medicine
PROC: 02HV33Z Insertion of Infusion Device into Superior Vena Cava, Percutaneous Approach (ICD-10-PCS; principal; 2017-06-29)
PROC: 5A1945Z Respiratory Ventilation, 24-96 Consecutive Hours (ICD-10-PCS; 2017-06-29)
PROC: 0BH17EZ Insertion of Endotracheal Airway into Trachea, Via Natural or Artificial Opening (ICD-10-PCS; 2017-06-29)
DX: A41.9 Sepsis, unspecified organism (principal); J18.1 Lobar pneumonia, unspecified organism; J96.20 Acute and chronic respiratory failure, unspecified whether with hypoxia or hypercapnia; N17.0 Acute kidney failure with tubular necrosis; R65.21 Severe sepsis with septic shock; E43 Unspecified severe protein-calorie malnutrition; L89.312 Pressure ulcer of right buttock, stage 2; C41.9 Malignant neoplasm of bone and articular cartilage, unspecified; C78.00 Secondary malignant neoplasm of unspecified lung; E44.0 Moderate protein-calorie malnutrition; C78.7 Secondary malignant neoplasm of liver and intrahepatic bile duct; J44.0 Chronic obstructive pulmonary disease with (acute) lower respiratory infection; J44.1 Chronic obstructive pulmonary disease with (acute) exacerbation; E83.39 Other disorders of phosphorus metabolism; C50.919 Malignant neoplasm of unspecified site of unspecified female breast; E11.65 Type 2 diabetes mellitus with hyperglycemia; E78.5 Hyperlipidemia, unspecified; E87.5 Hyperkalemia; E87.6 Hypokalemia; F15.10 Other stimulant abuse, uncomplicated; F17.210 Nicotine dependence, cigarettes, uncomplicated; F41.9 Anxiety disorder, unspecified; I11.0 Hypertensive heart disease with heart failure; R59.0 Localized enlarged lymph nodes; Z66 Do not resuscitate; I25.10 Atherosclerotic heart disease of native coronary artery without angina pectoris; I27.20 Pulmonary hypertension, unspecified; Z82.49 Family history of ischemic heart disease and other diseases of the circulatory system; Z68.23 Body mass index [BMI] 23.0-23.9, adult; Z85.118 Personal history of other malignant neoplasm of bronchus and lung; Z85.3 Personal history of malignant neoplasm of breast; Z85.830 Personal history of malignant neoplasm of bone; Z87.440 Personal history of urinary (tract) infections; Z90.13 Acquired absence of bilateral breasts and nipples; Z92.21 Personal history of antineoplastic chemotherapy; Z79.899 Other long term (current) drug therapy
CPT/HCPCS: 31500; 36415; 36569; 36600; 51702; 71010; 80053; 80202; 80307; 81001; 82570; 82805; 82962; 83605; 83880; 84100; 84132; 84156; 84300; 84484; 85025; 85610; 85730; 87040; 87070; 87081; 87086; 87205; 93005; 93971; 94002; 94003; 94640; 96365; 96367; 96372; 96375; 99291; C9113; J0330; J0610; J0696; J1815; J2250; J2543; J2704; J3010; J3490; J7060